=== PATIENT | female | born 1990 | race Two or more races ===

== ENCOUNTER 2019-09-27 01:56 | Emergency (ER) | payer SELFPAY ==
[~2019-09-27] VITALS: Ht 152.4 cm; Wt 59.0 kg
[2019-09-27 02:51] LABS: Alanine Aminotransferase 24 U/L (13-56); Albumin 3.2 g/dL (3.4-5.0); Aspartate Aminotransferase 17 U/L (15-37); BUN/Creatinine Ratio 14.3; Blood Urea Nitrogen 7 mg/dL (7-18); Calcium 8.3 mg/dL (8.5-10.1); Carbon Dioxide 20 mmol/L (21-32); GFR African American 191 mL/min; GFR Non-African American 158 mL/min; Glucose 147 mg/dL (74-106); Magnesium 1.6 mg/dL (1.6-2.6)
[2019-09-27 02:56] LABS: Alkaline Phosphatase 147 U/L (45-117); Bilirubin, Total 0.4 mg/dL (0.2-1.0); Total Protein 7.5 g/dL (6.4-8.2)
[2019-09-27 03:03] LABS: Chloride 112 mmol/L (98-107); Potassium 3.4 mmol/L (3.5-5.1); Sodium 143 mmol/L (136-145)
[2019-09-27 03:11] LABS: Anion Gap 11 (5-15)
[2019-09-27 03:16] LABS: Hematocrit 40.9 % (36.0-46.0); Hemoglobin 13.8 g/dL (12.2-16.2); Mean Corpuscular Hemoglobin 28.5 pg (28.0-32.0); Mean Corpuscular Hgb Conc. 33.6 g/dL (32.0-36.0); Mean Corpuscular Volume 84.8 fL (80.0-100.0); Platelet Count (auto) 295 10^3/uL (140-450); Red Blood Cells 4.82 10^6/uL (4.0-5.20); Red Cell Distribution Width 12.4 % (11.8-14.3); White Blood Cell 9.4 10^3/uL (4.4-10.8)
[2019-09-27 03:19] LABS: Band Neutrophils % (manual) 0; Basophils % (manual) 0 (0.0-2.0); Blast Cells 0; Eosinophils % (manual) 0 (0-7); Metamyelocytes % 0; Myelocytes % 0; Promyelocytes % 0
[2019-09-27 03:31] LABS: INR 1.01 (0.9-1.15); Partial Thromboplastin Time 24.5 sec (23.64-32.05)
[2019-09-27 04:00] VITALS: BP 117/77
[2019-09-27 04:19] LABS: Lymphocytes % (manual) 72 (10.0-50.0); Monocytes % (manual) 7 (0-12); Reactive Lymphocytes 2
[2019-09-27 04:32] LABS: Urine Bacteria MOD /hpf (None Seen); Urine Blood Negative /uL (Negative); Urine Hyaline Cast FEW /lpf (0 - 2); Urine Mucus FEW (None Seen); Urine Specific Gravity 1.044 (1.001-1.035); Urine WBC 15 /hpf (0 - 5)
[2019-09-27 04:36] LABS: Alcohol, Urine < 3.0 mg/dL (0-5); Amphetamine Screen, Urine NEGATIVE (NEGATIVE); Barbiturate Scree,Urine NEGATIVE (NEGATIVE); Benzodiazephine Screen, Urine NEGATIVE (NEGATIVE); Cannabinoid Screen, Urine POSITIVE (NEGATIVE); Cocaine Screen, Urine NEGATIVE (NEGATIVE); Opiate Scree,Urine NEGATIVE (NEGATIVE); Phencyclidine Screen, Urine NEGATIVE (NEGATIVE)
== END 2019-09-27 05:00 | disposition home or self-care (01) ==
LOC: ER 01:57 → EDBD 01:57 → ER 05:00
DX: N39.0 Urinary tract infection, site not specified (principal); K52.9 Noninfective gastroenteritis and colitis, unspecified
CPT/HCPCS: 36415; 71045; 80053; 80307; 81001; 83735; 83880; 84484; 85007; 85027; 85379; 85610; 85730; 93005

== ENCOUNTER 2020-11-21 09:52 | Emergency (ER) | payer MEDICAID, OTHER ==
[~2020-11-21] VITALS: Ht 152.4 cm; Wt 59.0 kg
[2020-11-21 10:01] VITALS: BP 122/68
== END 2020-11-21 11:33 | disposition home or self-care (01) ==
LOC: ER 09:52
DX: J01.90 Acute sinusitis, unspecified (principal); N39.0 Urinary tract infection, site not specified
CPT/HCPCS: 81002